=== PATIENT | male | born 1965 | race Two or more races ===

== ENCOUNTER 2020-12-30 21:28 | Inpatient (IN) | payer MEDICAID ==
[~2020-12-30] VITALS: Ht 172.7 cm; Wt 73.5 kg
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
[2020-12-31] MEDS ORDERED: ZOLPIDEM TARTRATE 5 MG TABLET PO PRN (00:30)
[2020-12-31] MEDS ORDERED: MAGNESIUM HYDROXIDE 30 ML UDC PO PRN (00:30)
[2020-12-31] MEDS ORDERED: LORAZEPAM INJ 2 MG/ML VIAL IV PRN (00:30)
[2020-12-31] MEDS ORDERED: ACETAMINOPHEN 325 MG TABLET PO PRN (00:30)
[2020-12-31] MEDS ORDERED: MAG HYDROX/AL HYDROX/SIMETH 30 ML UDC PO PRN (00:30)
[2020-12-31] MEDS ORDERED: ONDANSETRON HCL/PF 4 MG/2 ML VIAL IVP PRN (00:30)
[2020-12-31] MEDS ORDERED: Z GUARD REMEDY 2 OZ OINT TP PRN (00:30)
[2020-12-31] MEDS: IV NS 0.9% 1,000 ML IV PRN ×2 (01:00→14:54)
--- NOTE | 2020-12-31 01:00 | NUR ---
RN NOTE FAXED ORDER TO NURSING DIRECTOR VISUAL FOR THIAMINE IV, AND NOTIFIED. WILL BRING MED.
[2020-12-31] MEDS ORDERED: Thiamine 100 MG/ML VIAL ONE (02:15)
[2020-12-31] MEDS: Thiamine 100 MG in IV D5W 50 ML IV SCH (03:56)
[2020-12-31 04:00] VITALS: BP 108/73
[2020-12-31 07:14] LABS: BASOPHILS # (AUTO) 0.1 K/uL (0.0-0.2); EOSINOPHILS % (AUTO) 0.9 % (0.0-6.0); HEMATOCRIT 24 % (39-51); HEMOGLOBIN 7.2 g/dL (13.5-17.5); LYMPHOCYTES # (AUTO) 1.7 K/uL (0.8-4.8); LYMPHOCYTES % (AUTO) 27.8 % (20.0-44.0); MEAN CORPUSCULAR HGB CONC 29 g/dl (31.0-36.0); MEAN CORPUSCULAR VOLUME 62 fL (80-96); MONOCYTES # (AUTO) 0.5 K/uL (0.1-1.30); MONOCYTES % (AUTO) 7.6 % (2.0-12.0); NEUTROPHILS # (AUTO) 3.7 K/uL (1.8-8.9); NEUTROPHILS % (AUTO) 62.7 % (43.0-81.0); PLATELET COUNT (AUTO) 265 K/uL (150-450); RED BLOOD CELL COUNT(AUTO) 3.91 MIL/uL (4.5-6.0)
[2020-12-31 07:23] LABS: ALBUMIN 3.4 g/dL (3.4-5.0); BILIRUBIN,DIRECT 0.1 mg/dL (0.0-0.2); BILIRUBIN,TOTAL 0.5 mg/dL (0.2-1.0); CALCIUM, SERUM 7.7 mg/dL (8.5-10.1); MAGNESIUM 2.5 mg/dL (1.8-2.4); PHOSPHORUS 4.3 mg/dL (2.5-4.9); POTASSIUM 4.1 mmol/L (3.5-5.1)
--- NOTE | 2020-12-31 07:29 | NUR ---
RN CLOSING NOTE PATIENT IN BED, AWAKE. PATIENT IS ABLE TO MAKE NEEDS KNOWN. IV ACCESS PATENT AND INTACT, IV FLUIDS RUNNING. SAFETY MEASURES MAINTAINED. ALL ORDERS CARRIED OUT. ALL NEEDS MET AND ATTENDED. ENDORSED TO DAY SHIFT NURSE FOR BRUNILDA.
--- NOTE | 2020-12-31 07:45 | NUR ---
RN OPENING NOTES Patient seen comfortably lying in bed, no apparent distress noted, no SOB, respirations even and unlabored, denies any pain or discomfort at this time. Safety precautions in place, brakes locked, side rails up X 2, call light left within reach, will monitor closely for any changes.
[2020-12-31 08:00] VITALS: BP 116/74
[2020-12-31] MEDS: PANTOPRAZOLE 40 MG TABLET.DR PO SCH (08:15)
[2020-12-31] MEDS: NICOTINE PATCH (21MG) 21 MG PATCH.TD24 TD SCH (08:15)
[2020-12-31] MEDS: ENOXAPARIN SODIUM 80 MG/0.8 ML DISP.SYRIN SQ SCH ×2 (10:20→21:45)
[2020-12-31 11:17] LABS: THYROID STIMULATING HORMONE 1.442 uIU/mL (0.358-3.74)
[2020-12-31 12:00] VITALS: BP 116/71
[2020-12-31 16:00] VITALS: BP 128/93
--- NOTE | 2020-12-31 18:54 | NUR ---
RN CLOSING NOTES Patient lying in bed, AO X 4, no SOB, breathing even and unlabored, denies any pain or discomfort, no apparent distress noted. He had an episode of nausea around 1454, patient has a standing order for Zofran 4mg q6 prn give, and noted with help. All medications given per MD order, tolerating well, kept clean and dry, all needs attended, call light left within reach, safety precautions in place, brakes locked, side rails up X 2, will endorse to next shift for continuity of care.
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
[2020-12-31 20:00] VITALS: BP 111/79
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
[2021-01-01] VITALS (12 sets, daily range): BP systolic 89–122; BP diastolic 62–88
[2021-01-01] MEDS: Thiamine 100 MG in IV D5W 50 ML IV SCH (00:53)
[2021-01-01] MEDS: IV NS 0.9% 1,000 ML IV PRN ×2 (05:27→22:02)
--- NOTE | 2021-01-01 07:12 | NUR ---
RN CLOSING NOTE PATIENT IN BED, AWAKE. PATIENT IS ABLE TO MAKE NEEDS KNOWN. A/O X 4. PATIENT HAS 2 L O2 SUPPLEMENTATION, TOLERATING. NO SOB NOTED AT THIS TIME. PATIENT'S TELE MONITOR READS ST 109 BPM. PATIENT HAS A RAC 20 G WITH NS AT 75 ML/HR, PATENT AND INTACT, IVF ONGOING. SAFETY MEASURES IN PLACE: BED LOCKED AND IN LOWEST POSITION, CALL LIGHT WITHIN REACH, SIDE RAILS UP. ALL NEEDS MET AND ATTENDED, ALL ORDERS CARRIED OUT. WILL ENDORSE TO DAY SHIFT NURSE FOR BRUNILDA. Addendum: 01/01/21 at 0715 by KAYLA AVERY RN TELE MONITOR READS SR 93 BPM
[2021-01-01 07:22] LABS: BASOPHILS % (AUTO) 0.7 % (0.0-2.0); EOSINOPHILS % (AUTO) 1.6 % (0.0-6.0); HEMATOCRIT 24 % (39-51); LYMPHOCYTES # (AUTO) 1.7 K/uL (0.8-4.8); LYMPHOCYTES % (AUTO) 26.5 % (20.0-44.0); MEAN CORPUSCULAR HGB CONC 29 g/dl (31.0-36.0); MEAN CORPUSCULAR VOLUME 64 fL (80-96); MONOCYTES # (AUTO) 0.5 K/uL (0.1-1.30); MONOCYTES % (AUTO) 7.6 % (2.0-12.0); NEUTROPHILS % (AUTO) 63.6 % (43.0-81.0); PLATELET COUNT (AUTO) 275 K/uL (150-450); RED BLOOD CELL COUNT(AUTO) 3.68 MIL/uL (4.5-6.0); WHITE BLOOD COUNT (AUTO) 6.3 K/uL (4.3-11.0)
[2021-01-01 07:25] LABS: ALBUMIN 3.2 g/dL (3.4-5.0); BILIRUBIN,TOTAL 0.5 mg/dL (0.2-1.0); CALCIUM, SERUM 7.5 mg/dL (8.5-10.1); MAGNESIUM 2.5 mg/dL (1.8-2.4); PHOSPHORUS 3.8 mg/dL (2.5-4.9); POTASSIUM 4.7 mmol/L (3.5-5.1); TOTAL PROTEIN, SERUM 6.5 g/dL (6.4-8.2)
--- NOTE | 2021-01-01 07:30 | NUR ---
CHECK OUT CLERK OPENING NOTES RECEIVED PATIENT ON BED, AWAKE AND A/O X4. ON O2 AT 2LPM TOLERATING WELL. WITH NO SOB NOTED. NOT IN DISTRESS. WITH NO COMPLAINTS OF PAIN OR DISCOMFORT AT THIS TIME. ON TELE MONITOR CURRENTLY READING SINUS TACHYCARDIA AT 118BPM. WITH IV ACCESS AT LEFT UPPER ARM G20 WITH IVF NS AT 75ML/HR. SAFETY MEASURES IN PLACED. CALL LIGHT WITHIN REACH. BED ON LOWEST AND LOCKED POSITION, SIDE RAILS UP X2. WILL CONTINUE TO MONITOR.
[2021-01-01 07:35] LABS: HEMOGLOBIN 6.8 g/dL (13.5-17.5)
--- NOTE | 2021-01-01 08:03 | NUR ---
RN NOTES LAB CALLED TO REPORT HGB AT 6.8. DR. ROBLES MADE AWARE OF PATIENT'S HGB.
--- NOTE | 2021-01-01 08:34 | NUR ---
RN NOTES DR. ROBLES ORDERED FOR BLOOD TRANSFUSION 1 U PRBC.
[2021-01-01] MEDS: NICOTINE PATCH (21MG) 21 MG PATCH.TD24 TD SCH (09:00)
[2021-01-01] MEDS: PANTOPRAZOLE 40 MG TABLET.DR PO SCH (09:04)
[2021-01-01] MEDS: ENOXAPARIN SODIUM 80 MG/0.8 ML DISP.SYRIN SQ SCH ×2 (10:00→21:47)
[2021-01-01 12:24] LABS: EOSINOPHILS % (MANUAL) 1 % (0-4); LYMPHOCYTES % (MANUAL) 25 % (16-48); MONOCYTES % (MANUAL) 6 % (0-11.0); NEUTROPHILS % (MANUAL) 68 (42-76)
--- NOTE | 2021-01-01 15:38 | NUR ---
RN NOTES BLOOD TRANSFUSION STARTED WITH NURSE STEVEN. VITAL SIGNS CHECKED: AFEBRILE. TO MONITOR PATIENT'S VITAL SIGNS AFTER 15MIN.
--- NOTE | 2021-01-01 19:00 | NUR ---
OFFICE ADMINISTRATION INSTRUCTOR OPENING NOTES RECEIVED PATIENT ON BED, AWAKE AND A/O X4. ON O2 AT 2LPM TOLERATING WELL. WITH NO SOB NOTED. NOT IN DISTRESS. WITH NO COMPLAINTS OF PAIN OR DISCOMFORT AT THIS TIME. ON TELE MONITOR CURRENTLY READING SINUS TACHYCARDIA AT 118BPM. WITH IV ACCESS AT LEFT UPPER ARM G20 WITH IVF NS AT 75ML/HR. SAFETY MEASURES IN PLACED. CALL LIGHT WITHIN REACH. BED ON LOWEST AND LOCKED POSITION, SIDE RAILS UP X2. WILL CONTINUE TO MONITOR. Addendum: 01/01/21 at 1906 by SUE BECERRA RN ERROR.
--- NOTE | 2021-01-01 19:11 | NUR ---
GAG WRITER CLOSING NOTES RECEIVED PATIENT ON BED, AWAKE AND A/O X4. ON O2 AT 2LPM TOLERATING WELL. WITH NO SOB NOTED. NOT IN DISTRESS. WITH NO COMPLAINTS OF PAIN OR DISCOMFORT AT THIS TIME. ON TELE MONITOR CURRENTLY READING NORMAL SINUS RHYTHM AT 98BPM. WITH IV ACCESS AT LEFT UPPER ARM G20, SL AND AT LEFT HAND G20 WITH IVF NS AT 75ML/HR. BLOOD TRANSFUSION DONE. VITAL SIGNS CHECKED: STABLE. SAFETY MEASURES IN PLACED. CALL LIGHT WITHIN REACH. BED ON LOWEST AND LOCKED POSITION, SIDE RAILS UP X2. WILL ENDORSE TO NEXT SHIFT FOR BRUNILDA
--- NOTE | 2021-01-01 20:43 | NUR ---
in bed alert and orientated X4 smiling watching TV 02 2 liters sats 00% No noted SOB call light within his reach
[2021-01-02 04:00] VITALS: BP 109/72
[2021-01-02 04:05] VITALS: BP 109/72
--- NOTE | 2021-01-02 05:14 | NUR ---
closing notes: no c/o of SOB this 12 hours mainly stayed inhis bed watching tv On Lovenox explained to him the importance of this medication call [facility] within his reach
[2021-01-02 07:04] LABS: BASOPHILS # (AUTO) 0.1 K/uL (0.0-0.2); BASOPHILS % (AUTO) 0.9 % (0.0-2.0); EOSINOPHILS % (AUTO) 1.6 % (0.0-6.0); HEMATOCRIT 26 % (39-51); HEMOGLOBIN 7.8 g/dL (13.5-17.5); LYMPHOCYTES # (AUTO) 1.8 K/uL (0.8-4.8); LYMPHOCYTES % (AUTO) 27.3 % (20.0-44.0); MEAN CORPUSCULAR HGB CONC 30 g/dl (31.0-36.0); MEAN CORPUSCULAR VOLUME 65 fL (80-96); MONOCYTES # (AUTO) 0.5 K/uL (0.1-1.30); MONOCYTES % (AUTO) 7.3 % (2.0-12.0); NEUTROPHILS % (AUTO) 62.9 % (43.0-81.0); PLATELET COUNT (AUTO) 295 K/uL (150-450); RED BLOOD CELL COUNT(AUTO) 4.02 MIL/uL (4.5-6.0); WHITE BLOOD COUNT (AUTO) 6.4 K/uL (4.3-11.0)
--- NOTE | 2021-01-02 07:30 | NUR ---
ALKYLATION OPERATOR OPENING NOTES RECEIVED PATIENT ON BED, AWAKE AND A/O X4. ON O2 AT 2LPM TOLERATING WELL. WITH NO SOB NOTED. NOT IN DISTRESS. WITH NO COMPLAINTS OF PAIN OR DISCOMFORT AT THIS TIME. ON TELE MONITOR CURRENTLY READING NORMAL SINUS RHYTHM AT 95BPM. WITH IV ACCESS AT RIGHT HAND WITH IVF NS AT 75ML/HR. SAFETY MEASURES IN PLACED. CALL LIGHT WITHIN REACH. BED ON LOWEST AND LOCKED POSITION, SIDE RAILS UP X2. WILL CONTINUE TO MONITOR.
[2021-01-02 07:31] LABS: CALCIUM, SERUM 7.7 mg/dL (8.5-10.1); CREATININE 0.9 mg/dL (0.6-1.3); MAGNESIUM 2.5 mg/dL (1.8-2.4); PHOSPHORUS 3.6 mg/dL (2.5-4.9); POTASSIUM 4.2 mmol/L (3.5-5.1)
[2021-01-02] MEDS ORDERED: THIAMINE HCL 100 MG TABLET ONE (07:48)
[2021-01-02 08:00] VITALS: BP 115/81
[2021-01-02] MEDS: PANTOPRAZOLE 40 MG TABLET.DR PO SCH (08:12)
[2021-01-02] MEDS: THIAMINE HCL 100 MG TABLET PO SCH (08:12)
[2021-01-02] MEDS: NICOTINE PATCH (21MG) 21 MG PATCH.TD24 TD SCH (08:16)
[2021-01-02 10:07] LABS: *SPE A/G RATIO 1.1 (0.7-1.7); *SPE ALPHA-1-GLOBULIN 0.2 g/dL (0.0-0.4); *SPE ALPHA-2-GLOBULIN 0.7 g/dL (0.4-1.0); *SPE M-SPIKE Not Observed g/dL (Not Observed)
[2021-01-02] MEDS: ENOXAPARIN SODIUM 80 MG/0.8 ML DISP.SYRIN SQ SCH (10:51)
--- NOTE | 2021-01-02 11:30 | NUR ---
"SS consult SS consult requested for homelessness. Pt is a 55-year-old, male. SW met with pt at his bedside in the med-surg unit. Pt was alert and oriented x4. Pt presented calm and cooperative. Pts mood was euthymic and pts affect was WNL. Pt appeared to be appropriately dressed and somewhat malodorous. Pt stated that he is currently homeless and stated, Im homeless but Lisa been living back and forth with family. Pt stated that he is currently living with his daughters mother. Pt stated that he has been homeless for the last 10-15 years. Pt stated that he has adequate social support from his family. Pt receives [employer] as a source of income. Pt reported hx of substance abuse and stated that he received substance use treatment. Pt denied current substance use. SW assessed pts history of mental illness and pt denied hx. Pt denied current auditory or visual hallucinations. Pt denied suicidal or homicidal ideation. SW offered the pt homeless and outpatient mental health resources. Pt accepted the resources and thanked SW. Pt signed the homeless waiver and SW filed the waiver in the pts chart. SW discussed discharge plans with the pt. Pt plans to return to his prior living arrangement with family. Pt reported that he can use public transportation independently. PLAN: Pt plans to be discharged to his prior living arrangement with family. No further SS intervention at this time, however, SW will remain available as needed. RESOURCES: Year-round shelters: [facility] [address] [place] [address] ; [facility] [address] [place] [address]; [facility] [id number] [facility] [address] SPA 4 | [facility] Provider: [facility] Serve Address: [address], [address] # of Beds: 48 Population Served: [facility] Provider: First to Serve Address: [address] [facility], [address] # of Beds: 73 Population Served: [facility] 6 | [facility] Provider: [facility] Last Address: [address] [facility], [address] # of Beds: 63 Population Served: [facility] 3 | [facility] Provider: [facility] eve[place] Address: [address] [facility], [place], [address] # of Beds: 75 Population Served: [facility] 8 | [facility] Provider: [employer] [place] Address: [address] [facility], [address] # of Beds: 80 Population Served: [facility] 1 | [facility] Provider: [employer] eve[facility] [place] Address: [address] [place] [address], [address] # of Beds: 85 Population Served: [facility] 2 | [facility] Provider: Jerri floyd [facility] Address: Confidential (please call for location) # of Beds: 52 Population Served: [facility] 4 | [facility] Provider: [facility] Address: [address] [place] [address], [facility] # of Beds: 49 Population Served: [facility] Provider: [facility] To Serve Address: [address] [place] [address], [facility] # of Beds: 27 Population Served: [employer]: [facility]: [address] [facility] ; [facility] [address] [facility] ; [facility] [address] [place] . Food Resources: [facility] [employer] [facility] at [facility] [address] [facility]. [place]; Meet Each Need with Dignity ([facility]) [address] [facility]; [facility] [address] [facility]; [facility] [address] [facility]. Mental Health resources provided: [facility] [address] [place] [address] ; [facility] [employer] [address], [place], [place] [id number] ; [facility] [address] [place] [address] ; [facility] [address] [place], [place] [address] Healthcare Clinics: [facility] [address] [facility], [address] [place]. [place] ; [facility] [address] [facility] [address] [place] [address]; [facility] [address] [place] [address] [phone] Counseling--Outpatient [facility] [address] [facility], [place] [address] (Specializes in in-depth psychotherapy for emotional distress: anxiety, depression, interpersonal conflicts, life transitions, childhood abuse) PSYCHIATRIC OUTPATIENT SERVICES [facility] Partial Hospitalization and Intensive Outpatient Program (Managed Care and [place] Only) [address] [facility] [address] [facility] Partial Hospitalization and Outpatient Program [address] [place], [place] [id number] [facility] Partial Hospitalization and Outpatient Program [address] [facility] [place], [place] [phone] [facility] [address] [facility] [place], [place] [address] [facility] Partial Hospitalization and Outpatient Program [address] [place], [place] [phone] "
[2021-01-02 11:49] LABS: ABG OXYGEN SATURATION 92.3 % (92.0-98.5); ABG PCO2 25.8 mmHg (35.0-45.0); ABG PO2 66.2 mmHg (75.0-100.0); AaDO2 52.6 mmHg; COHb 0.7 % (0.5-1.5); MetHb 0.2 % (0.0-1.5); O2Hb 91.5 % (94.0-97.0); SITE, ABG Left Radial; VENT MODE, BG ROOM AIR
[2021-01-02] MEDS: IV NS 0.9% 1,000 ML IV PRN (14:29)
[2021-01-02] MEDS: SOD FERRIC GLUC 125 MG in IV NS 0.9% 100 ML IV SCH (14:29)
[2021-01-02 16:00] VITALS: BP 112/74
[2021-01-02 16:46] LABS: CALCIUM, SERUM 7.7 mg/dL (8.5-10.1); POTASSIUM 3.9 mmol/L (3.5-5.1)
--- NOTE | 2021-01-02 18:54 | NUR ---
SOFTWARE SALES CONSULTANT CLOSING NOTES RECEIVED PATIENT ON BED, AWAKE AND A/O X4. ON O2 AT 2LPM TOLERATING WELL. WITH NO SOB NOTED. NOT IN DISTRESS. WITH NO COMPLAINTS OF PAIN OR DISCOMFORT AT THIS TIME. WITH IV ACCESS AT LEFT UPPER ARM G20, SL AND AT LEFT HAND G20 WITH IVF NS AT 75ML/HR. SAFETY MEASURES IN PLACED. CALL LIGHT WITHIN REACH. BED ON LOWEST AND LOCKED POSITION, SIDE RAILS UP X2. PATIENT IS FOR HEPARIN INFUSION TONIGHT AT 2200. FOR PTT, PT WITH INR AND H/H AT 2000. TONIGHT. WILL ENDORSE TO NEXT SHIFT FOR BRUNILDA
--- NOTE | 2021-01-02 19:30 | NUR ---
RN OPENING NOTES: RECEIVED PT A/OX4 IN BED RESTING. PATIENT IN NO S/SX OF ACUTE DISTRESS AT THIS TIME. NO SOB NOTED. PATIENT'S BREATHING IS EVEN AND UNLABORED. PATIENT IS ON 2L OF OXYGEN VIA NC; TOLERATING WELL WITH 02 STA >95%. PT ON MS STATUS. PATIENT ON REGULAR DIET; TOLERATES WELL. NOTED IV SITE ON R HAND #20 ; PATENT, INTACT AND FLUSHING WELL; NO S/S OF INFECTION OR INFILTRATION. WITH IV FLUID RUNNING ORDERED. SAFETY MEASURES HAVE BEEN PROVIDED AND IMPLEMENTED. PATIENT BED ALARM IS ON. HEAD OF BED ELEVATED. BED IS LOCKED, IN LOWEST POSITION AND SIDE RAILS UP. CALL LIGHT WITHIN REACH OF THE PATIENT. APPLICABLE ISOLATION PRECAUTIONS IN PLACE. WILL CONTINUE TO MONITOR AND REASSESS FOR ANY CHANGES AND WILL CARRY OUT ANY ONGOING AND ACTIVE MD ORDER.
[2021-01-02 20:00] VITALS: BP 141/94
[2021-01-02] MEDS: HEPARIN INFUSION/D5W 500 ML IV SCH (22:00)
--- NOTE | 2021-01-02 22:00 | NUR ---
RN NOTES STARTED HEPARIN INFUSION/DRIP PER NON ACS PROTOCOL: -0 UNITS/NO BOLUS ;75KG/ UNITS/HOURS BASED ON WEIGHT (18UNITS/KG)= 1350. WILL REDRAW PTT AFTER 6HOURS; THEN ADJUST HEPARIN PER PROTOCOL. SECURITY SOFTWARE ENGINEER MADE AWARE. WILL CONTINUE TO MONITOR AND ASSESS THROUGHOUT THE SHIFT.
[2021-01-02 22:14] LABS: HEMOGLOBIN 8.1 g/dL (13.5-17.5)
--- NOTE | 2021-01-03 | NUR ---
RN NOTES PATIENT REMAINED TO BE IN NO SIGNS OF ACUTE RESPIRATORY DISTRESS .WILL CONTINUE TO MONITOR AND REASSESS FOR ANY CHANGES THROUGHOUT THE SHIFT.
[2021-01-03 04:31] LABS: BASOPHILS # (AUTO) 0.1 K/uL (0.0-0.2); BASOPHILS % (AUTO) 1.1 % (0.0-2.0); EOSINOPHILS % (AUTO) 1.1 % (0.0-6.0); HEMATOCRIT 25 % (39-51); HEMOGLOBIN 7.3 g/dL (13.5-17.5); LYMPHOCYTES # (AUTO) 1.9 K/uL (0.8-4.8); LYMPHOCYTES % (AUTO) 26.4 % (20.0-44.0); MEAN CORPUSCULAR HGB CONC 30 g/dl (31.0-36.0); MEAN CORPUSCULAR VOLUME 65 fL (80-96); MONOCYTES # (AUTO) 0.6 K/uL (0.1-1.30); MONOCYTES % (AUTO) 8.1 % (2.0-12.0); NEUTROPHILS # (AUTO) 4.6 K/uL (1.8-8.9); NEUTROPHILS % (AUTO) 63.3 % (43.0-81.0); PLATELET COUNT (AUTO) 274 K/uL (150-450); WHITE BLOOD COUNT (AUTO) 7.3 K/uL (4.3-11.0)
[2021-01-03 04:39] LABS: CALCIUM, SERUM 7.6 mg/dL (8.5-10.1); CREATININE 1.1 mg/dL (0.6-1.3); MAGNESIUM 2.3 mg/dL (1.8-2.4); PHOSPHORUS 4.2 mg/dL (2.5-4.9)
--- NOTE | 2021-01-03 05:00 | NUR ---
RN NOTES COAGULATION BLOOD WORK UP NOT YET RELEASED. ONCE AVAILABLE; WILL REVISIT HEPARIN PROTOCOL FOR ANY ADJUSTMENT. WILL CONTINUE TO MONITOR MACHINE ERECTOR MADE AWARE.
--- NOTE | 2021-01-03 05:15 | NUR ---
SARA NOTES @7204 RECEIVED CALL FROM [facility]; PTT: 81.8; WILL CHECK HEPARIN PROTOCOL FOR ADJUSTMENT. DOOR PATCHER MADE AWARE. WILL ADJUST HEPARIN DRIP PER HEPARIN PROTOCOL: APTT: 81.8; CRITERIA: 71-90SECONDS; DECREASE DRIP BY 2 U/KG/HR= 150U/HR (1350-150= 1200) Addendum: 01/03/21 at 0524 by CARMEN GARDNER RN NEXT BLOOD DRAW FOR COAGULATION LAB- 1100
[2021-01-03] MEDS: IV NS 0.9% 1,000 ML IV PRN (06:00)
--- NOTE | 2021-01-03 06:47 | NUR ---
RN CLOSING NOTE: PATIENT REMAINS IN ROOM IN NO SIGNS OF RESPIRATORY DISTRESS, PATIENT NOW ON ROOM AIR;TOLERATING WELL SATURATING @ >95% SP02. SAFETY MEASURES IMPLEMENTED, BED IN LOWEST POSITION, LOCKED, SIDE RAILS UP, CALL LIGHT WITHIN REACH. ALL NEEDS AND ORDERS ADDRESSED DURING THE SHIFT. IV ACCESS MAINTAINED INTACT, SECURED AND FLUSHING WELL. ALL DUE MEDS GIVEN ORDERED & SCHEDULED ; PATIENT TOLERATED WELL. WITH ONGOING HEPARIN DRIP @1200U/HR (24ML/HR);MONITORED AND ADJUSTED PER HEPARIN NON ACS PROTOCOL..PATIENT KEPT CLEAN AND COMFORTABLE WITHIN THE SHIFT. PATIENT ENDORSED TO INCOMING SHIFT RN WITH STABLE VITAL SIGN AND FOR CONTINUITY OF CARE.
[2021-01-03 07:07] LABS: IMMUNOGLOBULIN A, SERUM 313 mg/dL (90-386); IMMUNOGLOBULIN G, SERUM 941 mg/dL (603-1613); IMMUNOGLOBULIN M, SERUM 123 mg/dL (20-172)
--- NOTE | 2021-01-03 07:12 | NUR ---
MS RN OPENING NOTES RECEIVED PATIENT AWAKE IN BED IN NO ACUTE SIGNS OF DISTRESS. A/O X4. ABLE TO MAKE NEEDS KNOWN, DENIES PAIN OR ANY DISCOMFORTS AT THIS TIME. ON ROOM AIR, TOLERATING WELL WITH NO SOB NOTED. IV ACCESS AT RIGHT FA INTACT WITH HEPARIN DRIP INFUSING AT 1200U/HR (24ML/HR) AND IVF OF NS AT 75ML/HR., NO S/S OF INFILTRATION AT SITE NOTED. SAFETY MEASURES IN PLACED: CALL LIGHT WITHIN REACH. BED ON LOWEST AND LOCKED POSITION, SIDE RAILS UP X2. WILL CONTINUE TO MONITOR.
[2021-01-03 08:00] VITALS: BP_SYST 119; BP_SYST 141; BP_DIAS 78; BP_DIAS 94
[2021-01-03] MEDS: PANTOPRAZOLE 40 MG TABLET.DR PO SCH (08:01)
[2021-01-03] MEDS: THIAMINE HCL 100 MG TABLET PO SCH (08:33)
[2021-01-03] MEDS: NICOTINE PATCH (21MG) 21 MG PATCH.TD24 TD SCH (08:33)
[2021-01-03] MEDS: HEPARIN INFUSION/D5W 500 ML IV SCH ×2 (12:16→18:41)
--- NOTE | 2021-01-03 12:17 | NUR ---
RN NOTE DR TORRES GAVE ORDERS FOR NPO PAST MIDNIGHT AND TO HOLD HEPARIN DRIP POST MIDNIGHT, STATED HE WOULD DO PROCEDURE TOMORROW AM.
--- NOTE | 2021-01-03 12:18 | NUR ---
RN NOTES RECEIVED RESULTS OF PTT 65.5, NO CHANGED IN RATE., REMAINS ON 1200U/HR (24ML/HR). NEXT PTT WILL BE IN 6HRS, 1700. WILL CONTINUE TO MONITOR.
[2021-01-03] MEDS: SOD FERRIC GLUC 125 MG in IV NS 0.9% 100 ML IV SCH (14:31)
[2021-01-03 16:00] VITALS: BP 129/79
--- NOTE | 2021-01-03 17:49 | NUR ---
RN NOTES RECEIVED CALL FROM VALERIA YAP THAT PT'S PTT DRAWN AT 1700 WAS 127.1 SEC. HEPARIN DRIP HELD FOR 1 HOUR AT 1740 THEN WILL DECREASE DRIP BY 3 U/KG/HR= 125U/HR (19ML) TO START AT 1840. NEXT PTT ORDERED AT 2300. PT WITH NO ACTIVE BLEEDING NOTED. WILL CONTINUE TO MONITOR.
--- NOTE | 2021-01-03 18:43 | NUR ---
RN NOTES HEPARIN DRIP RESUMED AT 1840 AT 19ML/HR ( 950 U/HR) AFTER HOLDING FOR 1 HOUR. PT WITH NO ACTIVE BLEEDING NOTED. WILL CONTINUE TO MONITOR.
--- NOTE | 2021-01-03 18:52 | NUR ---
MS RN CLOSING NOTES PATIENT IN BED WATCHING TV AT THIS TIME. A/O X4. ABLE TO MAKE NEEDS KNOWN, DENIES PAIN OR ANY DISCOMFORTS AT THIS TIME. ON ROOM AIR, TOLERATING WELL WITH NO SOB NOTED. IV ACCESS AT LFA G#20 INTACT WITH HEPARIN DRIP INFUSING AT 950 U/HR (19ML/HR) AND IVF OF NS @ 75ML/HR., NO S/S OF INFILTRATION AT SITE NOTED. ALL NEEDS AND CARE ATTENDED WELL. SAFETY PRECAUTIONS IN PLACE: BED IN LOWEST LOCKED POSITION WITH SIDE-RAILS UP X2. CALL LIGHT W/I EASY REACH OF PT. WILL ENDORSE BRUNILDA TO QUANTITATIVE ANALYST DEVELOPER NURSE.
--- NOTE | 2021-01-03 19:45 | NUR ---
Patient is A&Ox1, oriented to self only. Follows some commands, able to make some needs known -though staff will anticipate needs. Sitting in bed with TV on. No signs of distress. Bed in lowest position, brakes on HOB 45, call light within reach, bed alarm on. Pt is NPO except meds. SARA PICC line patent and flushing. Will continue to monitor pt. Addendum: 01/03/21 at 2038 by RICKY MORAN RN WRONG PATIENT. UNABLE TO DELETE
--- NOTE | 2021-01-03 19:46 | NUR ---
disregard prior progress note. wrong patient
--- NOTE | 2021-01-03 19:47 | NUR ---
Patient is A&Ox4. No signs of distress. Denies pain, SOB, or any discomfort. Patient continues on heparin drip at 950 units per hour (19ML/HR) -infusing well. Will be NPO post midnight for EGD in AM. PTT to be drawn at 2300 and drip to be stopped at 2359 per MD order for EGD in AM. LFA #20G still intact and patent.
[2021-01-03 20:42] VITALS: BP 122/77
--- NOTE | 2021-01-03 22:00 | NUR ---
Patient NPO for EGD in AM
--- NOTE | 2021-01-03 23:02 | NUR ---
registered nurses up to draw PTT
--- NOTE | 2021-01-03 23:55 | NUR ---
Heparin infusion stopped as per order d/t EGD in AM.
[2021-01-04] MEDS: IV NS 0.9% 1,000 ML IV PRN ×2 (00:01→17:58)
[2021-01-04] MEDS ORDERED: ANESTHESIA TRAY IN PYXIS 1 EA TRAY MC ONE (05:37)
--- NOTE | 2021-01-04 05:45 | NUR ---
Patient left for EGD at 0525 in stable condition. A&Ox4. VS 114/81, HR 86, RR 17, O2 sat 100% on RA, temp 97.7. No belongings with patient.
--- NOTE | 2021-01-04 06:29 | NUR ---
Overnight no s/s of bleeding. Denies any SOB. no signs of distress. No overnight events.
--- NOTE | 2021-01-04 06:50 | NUR ---
report received from OR EGD complete only thing seen was hiatal hernia. pt will be back shortly.
[2021-01-04 06:55] VITALS: BP 122/92
--- NOTE | 2021-01-04 07:06 | NUR ---
500cc NS given in OR during EGD. MD order resume regular diet. Patient returned at 0655. VS 99% O2 sat on RA, B/P 122/92, HR 78, Temp 97., RR 19.
[2021-01-04] MEDS: THIAMINE HCL 100 MG TABLET PO SCH (08:05)
[2021-01-04] MEDS: PANTOPRAZOLE 40 MG TABLET.DR PO SCH ×2 (08:05→22:03)
[2021-01-04] MEDS: NICOTINE PATCH (21MG) 21 MG PATCH.TD24 TD SCH (08:06)
[2021-01-04 08:15] VITALS: BP 126/95
--- NOTE | 2021-01-04 08:35 | NUR ---
POUAKO KURA KAUPAPA MAORI OPENING NOTES RECEIVED PATIENT IN BED, AWAKE, A/OX4. PATIENT ON ROOM AIR; BREATHING EVEN AND UNLABORED AT THIS TIME; NO SOB NOTED. NO COMPLAINS OF PAIN. LFA G 20 PRESENT AND INTACT INFUSING NS @ 75 MLS/HR. SAFETY PRECAUTIONS IN PLACE; BED IN LOW POSITION AND LOCKED, RAILS UP X2, CALL LIGHT WITHIN REACH. WILL CONTINUE TO MONITOR PATIENT.
[2021-01-04 11:28] LABS: BASOPHILS # (AUTO) 0.1 K/uL (0.0-0.2); BASOPHILS % (AUTO) 0.9 % (0.0-2.0); EOSINOPHILS % (AUTO) 0.8 % (0.0-6.0); HEMATOCRIT 25 % (39-51); HEMOGLOBIN 7.5 g/dL (13.5-17.5); LYMPHOCYTES # (AUTO) 1.1 K/uL (0.8-4.8); LYMPHOCYTES % (AUTO) 16.9 % (20.0-44.0); MEAN CORPUSCULAR HGB CONC 30 g/dl (31.0-36.0); MEAN CORPUSCULAR VOLUME 66 fL (80-96); MONOCYTES # (AUTO) 0.5 K/uL (0.1-1.30); MONOCYTES % (AUTO) 7.3 % (2.0-12.0); NEUTROPHILS # (AUTO) 4.8 K/uL (1.8-8.9); NEUTROPHILS % (AUTO) 74.1 % (43.0-81.0); PLATELET COUNT (AUTO) 293 K/uL (150-450); RED BLOOD CELL COUNT(AUTO) 3.83 MIL/uL (4.5-6.0); WHITE BLOOD COUNT (AUTO) 6.5 K/uL (4.3-11.0)
[2021-01-04 11:57] LABS: CALCIUM, SERUM 7.9 mg/dL (8.5-10.1); MAGNESIUM 2.2 mg/dL (1.8-2.4); PHOSPHORUS 3.6 mg/dL (2.5-4.9); POTASSIUM 3.7 mmol/L (3.5-5.1)
[2021-01-04 13:07] LABS: *THROMBIN TIME 21.6 sec (0.0-23.0); *dPT CONFIRM RATIO 1.19 Ratio (0.00-1.40); *dRVVT 30.8 sec (0.0-47.0)
--- NOTE | 2021-01-04 13:41 | NUR ---
MS RN NOTES PER PHARMACY RESTART HEPARIN AT PREVIOUS RATE OF 950 UNITS/ HR (19MLS/HR) MD AWARE WELL.
[2021-01-04] MEDS: SOD FERRIC GLUC 125 MG in IV NS 0.9% 100 ML IV SCH (14:51)
[2021-01-04 16:27] VITALS: BP 125/85
--- NOTE | 2021-01-04 18:28 | NUR ---
CERTIFIED MEDICAL BILLER CLOSING NOTES PATIENT REMAINS IN BED, AWAKE, A/OX4. PATIENT ON ROOM AIR; BREATHING EVEN AND UNLABORED AT THIS TIME; NO SOB NOTED DURING SHIFT. NO COMPLAINS OF PAIN DURING THE DAY. LFA G 20 PRESENT AND INTACT INFUSING NS @ 75 MLS/HR. HEPARIN DRIP INFUSING AT 19MLS/HR. ALL NEEDS ATTENDED DURING THE DAY. SAFETY PRECAUTIONS IN PLACE; BED IN LOW POSITION AND LOCKED, RAILS UP X2, CALL LIGHT WITHIN REACH. WILL ENDORSE TO INDEPENDENT CONTRACTOR NURSE.
--- NOTE | 2021-01-04 19:15 | NUR ---
MS RN OPENING NOTES: RECEIVED PATIENT IN BED, AWAKE, A/O X4. NO S/S OF DISTRESS NOTED. CALL LIGHT WITHIN REACH. BED IN LOWEST AND LOCKED POSITION. ON HEPARIN DRIP AT 19ML/ HOUR.
[2021-01-04 20:00] VITALS: BP 128/101
--- NOTE | 2021-01-04 20:20 | NUR ---
HOP STRAINER RECEIVED A CALL FROM THE LAB THAT THE PTT DRAW WAS NOT DONE DUE TO PATIENT IS HARD STICK, CHARGE NURSE PHILOMENA AWARE.CALLED THE LAB FOR FF/UP PTT DRAW, TALKED TO JESSI AND SHE SAID SHE WILL COME AND DRAW THE BLOOD. CHARGE NURSE PHILOMENA AWARE.
[2021-01-04] MEDS ORDERED: HEPARIN SODIUM, PORCINE 5000 UNITS/1 ML VIAL IV ONE (23:00)
[2021-01-05 00:57] VITALS: BP 112/73
--- NOTE | 2021-01-05 06:09 | NUR ---
MS RUIZ OPENING NOTES: PATIENT IN BED, AWAKE, A/O X4. NO S/S OF DISTRESS NOTED. CALL LIGHT WITHIN REACH. BED IN LOWEST AND LOCKED POSITION. NO BLEEDING NOTED. ON HEPARIN DRIP AT 22ML/HOUR-1100 UNITS /HOUR. RESTED THROUGHOUT THE NIGHT. NO COMPLAIN OF PAIN. Addendum: 01/05/21 at 0614 by MI ENCINAS RN MS RUIZ CLOSING NOTES:
[2021-01-05 06:33] LABS: BASOPHILS % (AUTO) 0.7 % (0.0-2.0); EOSINOPHILS % (AUTO) 1.5 % (0.0-6.0); HEMATOCRIT 24 % (39-51); HEMOGLOBIN 7.2 g/dL (13.5-17.5); LYMPHOCYTES # (AUTO) 1.5 K/uL (0.8-4.8); LYMPHOCYTES % (AUTO) 21.4 % (20.0-44.0); MEAN CORPUSCULAR HGB CONC 30 g/dl (31.0-36.0); MEAN CORPUSCULAR VOLUME 67 fL (80-96); MONOCYTES # (AUTO) 0.4 K/uL (0.1-1.30); MONOCYTES % (AUTO) 6.4 % (2.0-12.0); NEUTROPHILS # (AUTO) 4.8 K/uL (1.8-8.9); PLATELET COUNT (AUTO) 278 K/uL (150-450); WHITE BLOOD COUNT (AUTO) 6.8 K/uL (4.3-11.0)
[2021-01-05 07:00] LABS: CALCIUM, SERUM 7.9 mg/dL (8.5-10.1); CREATININE 0.9 mg/dL (0.6-1.3); MAGNESIUM 2.3 mg/dL (1.8-2.4); PHOSPHORUS 4.2 mg/dL (2.5-4.9); POTASSIUM 3.7 mmol/L (3.5-5.1)
--- NOTE | 2021-01-05 07:30 | NUR ---
MS RN OPENING NOTES RECEIVED PATIENT ON BED, AWAKE AND A/O X4. ON ROOM AIR TOLERATING WELL. NO SOB NOTED. NOT IN DISTRESS. WITH NO COMPLAINTS OF PAIN OR DISCOMFORT AT THIS TIME. WITH IV ACCESS AT RIGHT HAND G20 ON HEPARIN DRIP AT 22ML/HR-1100 UNITS/HOUR. SAFETY MEASURES IN PLACE. CALL LIGHT WITHIN REACH. BED ON LOWEST AND LOCKED POSITION, SIDE RAILS UP X2. WILL CONTINUE TO MONITOR.
[2021-01-05 08:00] VITALS: BP 130/89
[2021-01-05] MEDS: NICOTINE PATCH (21MG) 21 MG PATCH.TD24 TD SCH (09:00)
[2021-01-05] MEDS: THIAMINE HCL 100 MG TABLET PO SCH (09:00)
[2021-01-05] MEDS: PANTOPRAZOLE 40 MG TABLET.DR PO SCH (09:00)
[2021-01-05] MEDS: HEPARIN INFUSION/D5W 500 ML IV SCH (09:22)
[2021-01-05] MEDS: SOD FERRIC GLUC 125 MG in IV NS 0.9% 100 ML IV SCH (14:42)
[2021-01-05 16:00] VITALS: BP 143/76
[2021-01-05] MEDS ORDERED: PANT40TA2 PO (16:34)
[2021-01-05] MEDS ORDERED: FERR325T24 PO (16:34)
--- NOTE | 2021-01-05 19:30 | NUR ---
MS RN CLOSING NOTES PATIENT ON BED, AWAKE AND A/O X4. ON ROOM AIR TOLERATING WELL. NO SOB NOTED. NOT IN DISTRESS. WITH NO COMPLAINTS OF PAIN OR DISCOMFORT AT THIS TIME. WITH IV ACCESS AT RIGHT HAND G20 ON HEPARIN DRIP AT 22ML/HR-1100 UNITS/HOUR. SAFETY MEASURES IN PLACE. CALL LIGHT WITHIN REACH. BED ON LOWEST AND LOCKED POSITION, SIDE RAILS UP X2. FOR DISCHARGE PER DOCTOR'S ORDER. WILL ENDORSE TO NEXT SHIFT FOR BRUNILDA.
--- NOTE | 2021-01-05 19:56 | NUR ---
D/C INSTRUCTIONS GIVEN TO THE PATIENT AND PACKET PRINTED BY SARA KELLY AND GIVEN TO THE PATIENT. PATIENT VERBALIZED UNDERSTANDING. PRESCRIPTION GIVEN TO THE PATIENT. IV REMOVED BY THE PATIENT. NO BLEEDING NOTED.
[2021-01-05 20:00] VITALS: BP 127/88
[2021-01-07 07:06] LABS: *HGBFRC HEMOGLOBIN A2 1.7 % (1.8-3.2)
[2021-01-09 11:07] LABS: PROTEIN C ACTIVITY 55 % (73-180)
== END 2021-01-05 20:05 | disposition home or self-care (01) | DRG 134 ==
LOC: TELE 23:39 → MED 01-02 08:12
PROVIDERS: ADMIT Nurse Practitioner Acute Care; ATTEND Student in an Organized Health Care Education/Training Program
PROC: 30233N1 Transfusion of Nonautologous Red Blood Cells into Peripheral Vein, Percutaneous Approach (ICD-10-PCS; 2021-01-01)
PROC: 0DJ08ZZ Inspection of Upper Intestinal Tract, Via Natural or Artificial Opening Endoscopic (ICD-10-PCS; principal; 2021-01-04)
DX: I26.99 Other pulmonary embolism without acute cor pulmonale (principal); J96.01 Acute respiratory failure with hypoxia; N17.0 Acute kidney failure with tubular necrosis; E88.09 Other disorders of plasma-protein metabolism, not elsewhere classified; D50.9 Iron deficiency anemia, unspecified; F10.10 Alcohol abuse, uncomplicated; I82.412 Acute embolism and thrombosis of left femoral vein; I21.A1 Myocardial infarction type 2; I82.432 Acute embolism and thrombosis of left popliteal vein; K29.70 Gastritis, unspecified, without bleeding; K40.90 Unilateral inguinal hernia, without obstruction or gangrene, not specified as recurrent; Z82.3 Family history of stroke; F17.210 Nicotine dependence, cigarettes, uncomplicated; Z86.711 Personal history of pulmonary embolism; Z96.649 Presence of unspecified artificial hip joint
CPT/HCPCS: 36415; 36600; 80048-TC; 80053-TC; 80061-TC; 80076-TC; 82378; 82550-TC; 82728-TC; 82784; 82803-TC; 83540-TC; 83605-TC; 83735-TC; 83970; 84100-TC; 84155; 84165; 84439-TC; 84443-TC; 84484-TC; 85025-TC; 85027-TC; 85303; 85610-TC; 85613; 85670; 85705; 85730-TC; 85732; 86334; 86850-TC; 87081-TC; 93307-TC; 93970-TC; G0378; J1644; J1650; J2405; J2704; J2916; J3411; J3490; J7030; J7050; J7060; P9016

== ENCOUNTER 2022-07-16 04:27 | Inpatient (IN) | payer MEDICAID, OTHER ==
[~2022-07-16] VITALS: Ht 172.7 cm; Wt 72.6 kg
[~2022-07-16 04:27] MED LIST: FERR325T24 PO; PANT40TA2 PO
--- NOTE | 2022-07-16 04:35 | NUR ---
To ER bed 9, bibra from home for abd pain hx of hernia, aaox4, breathing even and non labored, connected to monitor, awaiting md chapa
--- NOTE | 2022-07-16 05:10 | NUR ---
CALLED LAB, BLOOD SAMPLES ARE READY
[2022-07-16] MEDS ORDERED: MORPHINE SULFATE INJ 4 MG/ML DISP.SYRIN ONE ×2 (05:13→09:46)
[2022-07-16] MEDS ORDERED: MORPHINE SULFATE INJ 2 MG/ML DISP.SYRIN IV ONE (05:30)
[2022-07-16] MEDS ORDERED: LORAZEPAM INJ 2 MG/ML VIAL IV PRN (06:00)
[2022-07-16] MEDS ORDERED: Z GUARD REMEDY 4 OZ OINT TP PRN (06:00)
[2022-07-16] MEDS ORDERED: ONDANSETRON HCL/PF 4 MG/2 ML VIAL IVP PRN (06:00)
[2022-07-16 06:01] LABS: CREATININE 1.1 mg/dL (0.6-1.3); POTASSIUM 3.4 mmol/L (3.5-5.1)
[2022-07-16 06:02] LABS: BASOPHILS # (AUTO) 0.1 K/uL (0.0-0.2); BASOPHILS % (AUTO) 0.6 % (0.0-2.0); EOSINOPHILS % (AUTO) 0.5 % (0.0-6.0); HEMATOCRIT 44 % (39-51); HEMOGLOBIN 14.8 g/dL (13.5-17.5); LYMPHOCYTES # (AUTO) 1.5 K/uL (0.8-4.8); MEAN CORPUSCULAR HGB CONC 34 g/dl (31.0-36.0); MEAN CORPUSCULAR VOLUME 94 fL (80-96); MONOCYTES # (AUTO) 0.9 K/uL (0.1-1.30); MONOCYTES % (AUTO) 6.3 % (2.0-12.0); NEUTROPHILS # (AUTO) 11.3 K/uL (1.8-8.9); NEUTROPHILS % (AUTO) 81.6 % (43.0-81.0); PLATELET COUNT (AUTO) 297 K/uL (150-450); RED BLOOD CELL COUNT(AUTO) 4.64 MIL/uL (4.5-6.0); WHITE BLOOD COUNT (AUTO) 13.8 K/uL (4.3-11.0)
--- NOTE | 2022-07-16 06:06 | NUR ---
GENERAL SURGEON CHANDANA VELIZD, NO ANSWER LEFT A MEASSGE. WAITING ON CALLBACK
[2022-07-16 06:07] LABS: ALBUMIN 4.4 g/dL (3.4-5.0); BILIRUBIN,DIRECT 0.1 mg/dL (0.0-0.2); BILIRUBIN,TOTAL 0.4 mg/dL (0.2-1.0); TOTAL PROTEIN, SERUM 8.1 g/dL (6.4-8.2)
--- NOTE | 2022-07-16 06:09 | NUR ---
covid swab done and sent
--- NOTE | 2022-07-16 06:39 | NUR ---
Lactic acid 2.3
[2022-07-16] MEDS ORDERED: PIPERACILLIN /TAZOBACTAM 3.375 G in IV D5W 50 ML IV ONE (08:00)
--- NOTE | 2022-07-16 08:56 | NUR ---
CALLED DR. ELLINGTON [phone]
--- NOTE | 2022-07-16 09:45 | NUR ---
CALLED DR. ELILNGTON [phone] LEFT VM
[2022-07-16] MEDS: MORPHINE SULFATE INJ 2 MG/ML DISP.SYRIN IV PRN ×2 (09:50→15:21)
--- NOTE | 2022-07-16 09:56 | NUR ---
DR. ELLINGTON SPEAKING WITH DR. SPANGLER.
--- NOTE | 2022-07-16 10:15 | NUR ---
report given to donnie stark
[2022-07-16] MEDS ORDERED: CYAN500T9 PO (10:21)
[2022-07-16] MEDS ORDERED: FERR325T23 PO (10:21)
[2022-07-16 11:15] VITALS: BP 149/102
--- NOTE | 2022-07-16 11:15 | NUR ---
moved to inpatient room safely per acls protocol
--- NOTE | 2022-07-16 11:29 | NUR ---
RN MS NOTES RECEIVED PT FROM E.R. STAFF VIA CHAY, PT IS AWAKE, ALERT AND ORIENTED, ABLE TO AMBULATE TO BED WITH SLOW AND STEADY GAIT, ASSISTED TO BED, MADE COMFORTABLE, NOT IN RESPIRATORY DISTRESS, STATED HIS ABDOMINAL PAIN IS BETTER BUT STILL WITH SOME PAIN AND DISCOMFORT, NOTED WITH HERNIA AT THE RIGHT LOWER ABDOMEN, ROOM SET UP ORIENTATION PROVIDED TO PT, VERBALIZED UNDERSTANDING, CALL LIGHT PLACED WITHIN REACH, KEPT WARM AND COMFORTABLE IN BED, VITALS TAKEN AND RECORDED.
[2022-07-16] MEDS: PANTOPRAZOLE 40 MG VIAL IV SCH (13:00)
[2022-07-16] MEDS: IV D5/ 0.9% NACL 1,000 ML IV PRN (13:02)
[2022-07-16 16:00] VITALS: BP 161/97
[2022-07-16] MEDS: POTASSIUM CL. PREMIX PERIPHER. 50 ML IV SCH ×2 (16:58→17:49)
--- NOTE | 2022-07-16 18:55 | NUR ---
MS RN CLOSING NOTES PT RESTING IN BED IN LOW FOWLERS POSITION. PT IS AOX4, AMBULATORY WITH LOW STEADY GAIT. NPO FOR PENDING SURGERY TONIGHT AT 2100. HAS INCARCERATED HERNIA ON RIGHT LOWER ABDOMEN, PAIN MGT MORPHINE PRN. POTASSIUM 20MEQS GIVEN FOR REPLACEMENT. PT IS STABLE WITHOUT DISTRESS. ON ROOM AIR, NO S/SX OF RESPIRATORY DISTRESS. SAFETY MEASURES IN PLACE, BED LOCKED IN LOWEST POSITION, SIDE RAILS UP X2. WILL ENDORSE TO NEXT SHIFT. 6
--- NOTE | 2022-07-16 19:30 | NUR ---
MS RN OPENING NOTE RECEIVED PATIENT FROM AM NURSE; PATIENT IN BED WITH FAMILY AT BEDSIDE, A/O X 4, ABLE TO MAKE NEEDS KNOWN; MAINTAINED ON NPO FOR SURGERY AT 2100H; STABLE ON ROOM AIR, BREATHING EVENLY AND NO S/S OF DISTRESS NOTED; WITH IV ACCESS ON RIGHT AC G#20 RUNNING WITH D5NS AT 75 ML/HR; ENCOURAGED VERBALIZATION OF NEEDS; SAFETY MEASURES IN PLACE, BED IN LOW AND LOCKED POSITION, SIDE RAILS UP X 2, CALL LIGHT WITHIN REACH; WILL CONTINUE TO MONITOR THROUGHOUT SHIFT
[2022-07-16 20:00] VITALS: BP 140/97
[2022-07-16] MEDS ORDERED: LIDOCAINE HCL/MPF 1% 30 ML VIAL IJ ONE (20:29)
[2022-07-16] MEDS ORDERED: BUPIVACAINE MPF W/EPI 0.25% 30 ML VIAL ONE (20:29)
[2022-07-16] MEDS ORDERED: BUPIVACAINE MPF 0.5% W/EPI INJ 30 ML VIAL ONE (20:29)
[2022-07-16] MEDS ORDERED: MIDAZOLAM HCL 2 MG/2ML VIAL ONE (20:36)
[2022-07-16] MEDS ORDERED: FENTANYL PF 100MCG/2ML AMPUL ONE ×2 (20:36)
[2022-07-17 00:40] VITALS: BP 148/99
--- NOTE | 2022-07-17 00:45 | NUR ---
MS RN NOTE PATIENT WAS TRANSFERRED BACK FROM RECOVERY ROOM AT 0035H; PATIENT IS ALERT AND ORIENTED X 4, ABLE TO MAKE NEEDS KNOWN; DENIES ANY PAIN AND DISCOMFORT AT THIS TIME; VITAL SIGNS TAKEN AND RECORDED; ABDOMINAL DRESSING IS DRY, CLEAN AND INTACT; WITH ABDOMINAL BINDER AND DVT PUMP IN PLACE; INSTRUCTED ON HOW TO USE THE INCENTIVE SPIROMETER; WILL CONTINUE TO MONITOR THROUGHOUT SHIFT
[2022-07-17 00:55] VITALS: BP 144/97
[2022-07-17 01:15] VITALS: BP 147/98
[2022-07-17] MEDS: IV D5/ 0.9% NACL 1,000 ML IV PRN (05:38)
[2022-07-17 06:16] LABS: BASOPHILS % (AUTO) 0.1 % (0.0-2.0); HEMATOCRIT 44 % (39-51); HEMOGLOBIN 14.5 g/dL (13.5-17.5); LYMPHOCYTES # (AUTO) 0.7 K/uL (0.8-4.8); LYMPHOCYTES % (AUTO) 6.5 % (20.0-44.0); MEAN CORPUSCULAR HGB CONC 33 g/dl (31.0-36.0); MEAN CORPUSCULAR VOLUME 96 fL (80-96); MONOCYTES # (AUTO) 0.8 K/uL (0.1-1.30); MONOCYTES % (AUTO) 8.3 % (2.0-12.0); NEUTROPHILS # (AUTO) 8.6 K/uL (1.8-8.9); NEUTROPHILS % (AUTO) 85.1 % (43.0-81.0); PLATELET COUNT (AUTO) 257 K/uL (150-450); RED BLOOD CELL COUNT(AUTO) 4.56 MIL/uL (4.5-6.0); WHITE BLOOD COUNT (AUTO) 10.1 K/uL (4.3-11.0)
--- NOTE | 2022-07-17 06:50 | NUR ---
MS RN CLOSING NOTE PATIENT IN BED, A/O X 4, ABLE TO MAKE NEEDS KNOWN; STABLE ON ROOM AIR, BREATHING EVENLY AND NO S/S OF DISTRESS NOTED; WITH IV ACCESS ON RIGHT AC G#20 RUNNING WITH D5NS AT 75 ML/HR; WITH TOLERABLE PAIN AND DOESN'T WANT PAIN MEDICATION AT THIS TIME; ADMINISTERED MEDICATIONS PRESCRIBED; PATIENT'S NEEDS ATTENDED; MONITORED PATIENT ACCORDINGLY; SAFETY MEASURES IN PLACE, BED IN LOW AND LOCKED POSITION, SIDE RAILS UP X 2, CALL LIGHT AND TABLE WITHIN REACH; WILL ENDORSE TO AM NURSE FOR BRUNILDA.
--- NOTE | 2022-07-17 07:00 | NUR ---
MS RN OPENING NOTE RECEIVED PATIENT IN BED, A/O X 4, ABLE TO MAKE NEEDS KNOWN; STABLE ON ROOM AIR, BREATHING EVENLY AND UNLABORED NO S/S OF DISTRESS NOTED; WITH IV ACCESS ON RIGHT AC G#20 RUNNING WITH D5NS AT 75 ML/HR; SAFETY MEASURES IN PLACE, BED IN LOW AND LOCKED POSITION, SIDE RAILS UP X 2, CALL LIGHT AND TABLE WITHIN REACH; WILL CONTINUE TO MONITOR THE PATIENT FOR BRUNILDA.
[2022-07-17 07:17] LABS: CALCIUM, SERUM 8.3 mg/dL (8.5-10.1); CREATININE 0.9 mg/dL (0.6-1.3); MAGNESIUM 2.2 mg/dL (1.8-2.4); PHOSPHORUS 3.5 mg/dL (2.5-4.9); POTASSIUM 4.3 mmol/L (3.5-5.1)
[2022-07-17 08:00] VITALS: BP 135/92
[2022-07-17] MEDS: PANTOPRAZOLE 40 MG VIAL IV SCH (08:55)
[2022-07-17] MEDS: MORPHINE SULFATE INJ 2 MG/ML DISP.SYRIN IV PRN ×2 (14:44→20:27)
[2022-07-17 16:00] VITALS: BP 140/95
--- NOTE | 2022-07-17 18:46 | NUR ---
MS RN CLOSING NOTE PATIENT IN BED, A/O X 4, ABLE TO MAKE NEEDS KNOWN; STABLE ON ROOM AIR, BREATHING EVENLY AND UNLABORED NO S/S OF DISTRESS AT THIS TIME. WITH IV ACCESS ON RIGHT AC G#20 RUNNING D5NS AT 75 ML/HR; PATIENT'S PAIN TOLERABLE, PAIN MEDICATIONS GIVEN TODAY. ALL MEDICATIONS DUE GIVEN ORDERED, PATIENT'S NEEDS ATTENDED. MONITORED PATIENT PER PLAN OF CARE. SAFETY PROTOCOL IN PLACED AT ALL TIMES, WILL BE ENDORSED TO PM NURSE FOR BRUINLDA.
--- NOTE | 2022-07-17 19:20 | NUR ---
MS RN OPENING NOTE RECEIVED PATIENT FROM AM NURSE; PATIENT IN BED, A/O X 4, ABLE TO MAKE NEEDS KNOWN; STABLE ON ROOM AIR, BREATHING EVENLY AND NO S/S OF DISTRESS NOTED; WITH IV ACCESS ON RIGHT AC G#20 RUNNING WITH D5NS AT 75 ML/HR; NO COMPLAINTS OF PAIN AND DISCOMFORT AT THIS TIME; SAFETY MEASURES IMPLEMENTED, BED IN LOW AND LOCKED POSITION, SIDE RAILS UP X 2, CALL LIGHT WITHIN REACH; WILL CONTINUE TO MONITOR THROUGHOUT SHIFT
[2022-07-17 20:00] VITALS: BP 146/102
[2022-07-18] MEDS: IV D5/ 0.9% NACL 1,000 ML IV PRN (04:54)
--- NOTE | 2022-07-18 06:51 | NUR ---
MS RN CLOSING NOTE PATIENT IN BED, A/O X 4, ABLE TO MAKE NEEDS KNOWN; STABLE ON ROOM AIR, BREATHING EVENLY AND NO S/S OF DISTRESS NOTED; WITH IV ACCESS ON RIGHT AC G#20 SALINE LOCK, INTACT AND PATENT; WITH DVT PUMP IN PLACE; NO COMPLAINTS OF PAIN AND DISCOMFORT AT THIS TIME; PATIENT'S NEEDS ATTENDED; MONITORED PATIENT ACCORDINGLY; SAFETY MEASURES IMPLEMENTED, BED IN LOW AND LOCKED POSITION, SIDE RAILS UP X 2, CALL LIGHT WITHIN REACH; WILL ENDORSE TO AM NURSE FOR BRUNILDA.
[2022-07-18 06:53] LABS: BASOPHILS % (AUTO) 0.5 % (0.0-2.0); EOSINOPHILS % (AUTO) 0.3 % (0.0-6.0); HEMATOCRIT 42 % (39-51); HEMOGLOBIN 13.7 g/dL (13.5-17.5); LYMPHOCYTES # (AUTO) 1.4 K/uL (0.8-4.8); LYMPHOCYTES % (AUTO) 14.7 % (20.0-44.0); MEAN CORPUSCULAR HGB CONC 33 g/dl (31.0-36.0); MEAN CORPUSCULAR VOLUME 95 fL (80-96); MONOCYTES # (AUTO) 0.9 K/uL (0.1-1.30); MONOCYTES % (AUTO) 9.6 % (2.0-12.0); NEUTROPHILS # (AUTO) 7.1 K/uL (1.8-8.9); NEUTROPHILS % (AUTO) 74.9 % (43.0-81.0); PLATELET COUNT (AUTO) 242 K/uL (150-450); RED BLOOD CELL COUNT(AUTO) 4.35 MIL/uL (4.5-6.0); WHITE BLOOD COUNT (AUTO) 9.4 K/uL (4.3-11.0)
--- NOTE | 2022-07-18 07:00 | NUR ---
MS RN OPENING NOTE RECEIVED PATIENT IN BED, A/O X 4, ABLE TO MAKE NEEDS KNOWN; STABLE ON ROOM AIR, BREATHING EVENLY AND UNLABORED NO S/S OF DISTRESS NOTED; WITH IV ACCESS ON RIGHT AC G#20, SAFETY MEASURES IN PLACE, BED IN LOW AND LOCKED POSITION, SIDE RAILS UP X 2, CALL LIGHT AND TABLE WITHIN REACH; WILL CONTINUE TO MONITOR THE PATIENT FOR BRUNILDA.
[2022-07-18 07:24] LABS: CALCIUM, SERUM 8.4 mg/dL (8.5-10.1); MAGNESIUM 2.2 mg/dL (1.8-2.4); PHOSPHORUS 2.7 mg/dL (2.5-4.9); POTASSIUM 3.5 mmol/L (3.5-5.1)
[2022-07-18 08:31] VITALS: BP 135/84
[2022-07-18] MEDS: PANTOPRAZOLE 40 MG VIAL IV SCH (09:12)
[2022-07-18] MEDS ORDERED: HYDR-4209 PO (09:48)
[2022-07-18] MEDS ORDERED: DOCU-141 PO (09:48)
[2022-07-18] MEDS ORDERED: MORPHINE SULFATE INJ 4 MG/ML DISP.SYRIN IV PRN (10:00)
[2022-07-18 16:08] VITALS: BP 134/100
--- NOTE | 2022-07-18 19:30 | NUR ---
MS RN OPENING NOTES RECEIVED PATIENT AWAKE IN BED. PATIENT IS A/O TIMES 4. ABLE TO MAKE NEEDS KNOWN. NO PAIN NOTED. NO SOB NOTED. NO DISTRESS NOTED. SISTER AT THE BED SIDE. PATIENT IS USING URINAL. EDUCATE THE PATIENT FOR COUGHING AND TURNING USE PILLOW AND HOLD THE PILLOW TO THE ABDOMEN FOR COMFORT AND SAFETY. PATIENT AND THE SISTER VERBALIZED UNDERSTANDING. IV ACCESS ON THE RAC G # 20 INTACT AND SL. ABDOMINAL BINDER IN PLACE. NO ACTIVE BLEEDING NOTED. GAVE THE PATIENT EPIC NUMBER AND TOLD THEM TO CALL MD FOR FURTHER QUESTIONS AND CONCERNS. ALL SAFETY MEASURES IN PLACE. BED LOCKED IN THE LOWEST POSITION. CALL LIGHT AND TABLE IN EASY REACH. SIDE RAILS UP TIMES 2. WILL CONTINUE TO MONITOR CLOSELY.
[2022-07-18 20:00] VITALS: BP 130/91
--- NOTE | 2022-07-18 20:07 | NUR ---
MS RN CLOSING NOTE PATIENT IN BED, A/O X 4, ABLE TO MAKE NEEDS KNOWN; STABLE ON ROOM AIR, BREATHING EVENLY AND UNLABORED NO S/S OF DISTRESS AT THIS TIME. WITH IV ACCESS ON RIGHT AC G#20 RUNNING D5NS AT 75 ML/HR; PATIENT'S PAIN TOLERABLE, PAIN MEDICATIONS GIVEN TODAY. ALL MEDICATIONS DUE GIVEN ORDERED, AWAITING EVAL OF REPEAT IMAGING. PATIENT'S NEEDS ATTENDED. MONITORED PATIENT PER PLAN OF CARE. SAFETY PROTOCOL IN PLACED AT ALL TIMES, ENDORSED TO PM NURSE FOR BRUNILDA.
[2022-07-19 05:50] LABS: BASOPHILS % (AUTO) 0.4 % (0.0-2.0); EOSINOPHILS % (AUTO) 0.5 % (0.0-6.0); HEMATOCRIT 39 % (39-51); HEMOGLOBIN 13.3 g/dL (13.5-17.5); LYMPHOCYTES # (AUTO) 1.3 K/uL (0.8-4.8); LYMPHOCYTES % (AUTO) 13.7 % (20.0-44.0); MEAN CORPUSCULAR HGB CONC 34 g/dl (31.0-36.0); MEAN CORPUSCULAR VOLUME 93 fL (80-96); MONOCYTES # (AUTO) 0.9 K/uL (0.1-1.30); MONOCYTES % (AUTO) 9.6 % (2.0-12.0); NEUTROPHILS # (AUTO) 7.2 K/uL (1.8-8.9); NEUTROPHILS % (AUTO) 75.8 % (43.0-81.0); PLATELET COUNT (AUTO) 237 K/uL (150-450); RED BLOOD CELL COUNT(AUTO) 4.17 MIL/uL (4.5-6.0); WHITE BLOOD COUNT (AUTO) 9.5 K/uL (4.3-11.0)
[2022-07-19 06:14] LABS: CALCIUM, SERUM 8.3 mg/dL (8.5-10.1); CREATININE 0.9 mg/dL (0.6-1.3); MAGNESIUM 2.2 mg/dL (1.8-2.4); POTASSIUM 3.9 mmol/L (3.5-5.1)
--- NOTE | 2022-07-19 06:42 | NUR ---
MS RN CLOSING NOTES PATIENT RESTING IN BED. PATIENT IS A/O TIMES 4. ABLE TO MAKE NEEDS KNOWN. NO PAIN NOTED. NO SOB NOTED. NO DISTRESS NOTED. EDUCATE THE PATIENT FOR COUGHING AND TURNING USE PILLOW AND HOLD THE PILLOW TO THE ABDOMEN BY PRESSURE FOR COMFORT AND SAFETY. PATIENT VERBALIZED UNDERSTANDING. IV ACCESS ON THE RAC G # 20 INTACT AND SL. ABDOMINAL BINDER IN PLACE. NO ACTIVE BLEEDING NOTED. REMIND THE PATIENT TO USE INCENTIVE SPIROMETER TO PREVENT ATELECTASIS. PATIENT VERBALIZED UNDERSTANDING. ALL SAFETY MEASURES IN PLACE. BED LOCKED IN THE LOWEST POSITION. CALL LIGHT AND TABLE IN EASY REACH. SIDE RAILS UP TIMES 2. WILL ENDORSE FOR BRUNILDA.
--- NOTE | 2022-07-19 07:35 | NUR ---
MS RN OPENING NOTES: RECEIVED PATIENT AWAKE, RESTING IN BED, A/O X4, ABLE TO MAKE NEEDS KNOWN. ON RA WITH NO S/S OF SOB OR ACUTE DISTRESS, DENIES PAIN AT THIS TIME. EDUCATE THE PATIENT FOR COUGHING IV ACCESS ON THE RAC# 20, INTACT, FLUSHING WELL, SL. ABDOMINAL BINDER AND DRESSING IN PLACE, NO BLEEDING NOTED. ALL SAFETY MEASURES IN PLACE.; BED LOCKED IN THE LOWEST POSITION, CALL LIGHT AND TABLE WITHIN IN EASY REACH, SIDE RAILS UP X2, WILL CONT WITH PLAN OF CARE DURING SHIFT.
[2022-07-19 08:00] VITALS: BP 134/88
[2022-07-19] MEDS ORDERED: PANTOPRAZOLE 40 MG TABLET.DR PO SCH (09:00)
[2022-07-19 16:00] VITALS: BP 119/88
--- NOTE | 2022-07-19 17:31 | NUR ---
MS OCC THER NOTES: PT STABLE FOR DC PER MD. ALL VITALS WNL, ON RA, NO S/S OF SOB AND ACUTE DISTRESS NOTED. DISCUSSED DC INSTRUCTIONS, NEW MEDICATION AND BELONGINGS LIST, PT VERBALIZED UNDERSTANDING AND SIGNED DOCS. MEDICAL RECORD PRINTED AND GIVEN TO PT. IV ACCESS AND ID BAND REMOVED. PT LEFT UNIT ON FOOT, TRANSPORTATION IS PRIVATE CAR WITH FAMILY.
== END 2022-07-19 17:30 | disposition home or self-care (01) | DRG 710 ==
LOC: ER 04:30 → MED 10:48
PROVIDERS: ADMIT Nurse Practitioner Acute Care; ATTEND Nurse Practitioner Acute Care
PROC: 0YU50JZ Supplement Right Inguinal Region with Synthetic Substitute, Open Approach (ICD-10-PCS; principal; 2022-07-16)
PROC: 0DBU0ZZ Excision of Omentum, Open Approach (ICD-10-PCS; principal; 2022-07-16)
DX: A41.9 Sepsis, unspecified organism (principal); E87.20 Acidosis, unspecified; E87.1 Hypo-osmolality and hyponatremia; K40.30 Unilateral inguinal hernia, with obstruction, without gangrene, not specified as recurrent; E87.6 Hypokalemia; I10 Essential (primary) hypertension; I25.10 Atherosclerotic heart disease of native coronary artery without angina pectoris; K57.30 Diverticulosis of large intestine without perforation or abscess without bleeding; M16.0 Bilateral primary osteoarthritis of hip; Z82.3 Family history of stroke; F10.10 Alcohol abuse, uncomplicated
CPT/HCPCS: 36415; 71045-TC; 80048-TC; 80076-TC; 83605-TC; 83690-TC; 83735-TC; 84100-TC; 84132-TC; 85025-TC; 85730-TC; 86850-TC; 87040-TC; 87081-TC; A4223; C1781; C9113; C9803; G0378; J0690; J2250; J2270; J2405; J2543; J2704; J3010; J3480; J3490; J7030; J7042; J7060